=== PATIENT | female | born 1985 | race Caucasian/White ===

== ENCOUNTER 2018-04-30 11:46 | Inpatient (IN) | payer MEDICAID ==
[2018-04-30] MEDS ORDERED: CARBOPROST 250 MCG INJ IM ×2 (12:00→18:30)
[2018-04-30] MEDS ORDERED: OXYTOCIN 30 UNITS/LR 500 ML IV ×2 (12:00→18:30)
[2018-04-30] MEDS ORDERED: MISOPROSTOL 200 MCG TAB PR ×2 (12:00→18:30)
[2018-04-30] MEDS ORDERED: METHYLERGONOVINE 0.2 MG INJ IM ×2 (12:00→18:30)
[2018-04-30] MEDS: LACTATED RINGER'S 1,000 ML IV ×4 (12:21→18:21)
[2018-04-30] MEDS ORDERED: ONDANSETRON 4 MG INJ IV ×3 (12:30→18:30)
[2018-04-30 12:33] LABS: ADD MAN DIFF? NO
[2018-04-30 12:36] LABS: ABNORMAL IP MESSAGE 1; BASOPHILS % 0.4 % (0.0-2.0); EOSINOPHILS # 0.1 10^3/ul (0.0-0.5); EOSINOPHILS % 0.7 % (0.0-7.0); HEMATOCRIT 32.4 % (37.0-47.0); HEMOGLOBIN 10.7 g/dl (12.0-16.0); LYMPHOCYTES # 1.1 10^3/ul (0.8-2.9); LYMPHOCYTES % 14.2 % (15.0-51.0); MEAN CORPUSCULAR HEMOGLOBIN 29.3 pg (29.0-33.0); MEAN CORPUSCULAR VOLUME 88.8 fl (82.0-101.0); MEAN PLATELET VOLUME 13.1 fl (7.4-10.4); MONOCYTE # 0.4 10^3/ul (0.3-0.9); NEUTROPHILS % 79.2 % (39.0-77.0); PLATELET COUNT 146 10^3/UL (140-415); RED BLOOD COUNT 3.65 10^6/ul (4.20-5.40)
[2018-04-30 12:36] LABS: WHITE BLOOD COUNT 7.5 10^3/ul (4.8-10.8)
[2018-04-30 12:58] LABS: INR 0.97
[2018-04-30 13:32] LABS: HEPATITIS B SURFACE ANTIGEN NEGATIVE (NEGATIVE)
[2018-04-30] MEDS: METOCLOPRAMIDE 10 MG INJ IV (16:43)
[2018-04-30] MEDS: CITRIC ACID/NA CITRATE 30 ML CUP PO (16:43)
[2018-04-30] MEDS: FAMOTIDINE 20 MG INJ IV (16:43)
[2018-04-30] MEDS ORDERED: morphine SULFATE/PF (10 MG/10 ML) INJ (16:57)
[2018-04-30] MEDS ORDERED: PHENYLephrine (100 MCG/ML) 10ML SYG (17:09)
[2018-04-30] MEDS: CEFAZOLIN 2 GM/50 ML (PMX) 50 ML IVPB (17:23)
[2018-04-30] MEDS ORDERED: ONDANSETRON 4 MG INJ (17:24)
[2018-04-30] MEDS ORDERED: KETOROLAC 30 MG INJ IV (17:30)
[2018-04-30] MEDS ORDERED: HYDROmorphONE 1 MG/5 ML IV SYRINGE IV ×3 (17:30)
[2018-04-30] MEDS ORDERED: DIPHENHYDRAMINE 50 MG INJ IV ×2 (17:30→18:30)
[2018-04-30] MEDS ORDERED: FENTAnyl 50 MCG/ML VIAL IV ×3 (17:30)
[2018-04-30] MEDS ORDERED: PROCHLORPERAZINE 10 MG INJ IV (17:30)
[2018-04-30] MEDS ORDERED: MEPERIDINE 25 MG INJ IV (17:30)
[2018-04-30] MEDS ORDERED: EPHEDrine 25 MG/5 ML SYG (17:44)
[2018-04-30] MEDS ORDERED: HYDROmorphONE 0.5 MG/0.5 ML SYG IV ×2 (18:30)
[2018-04-30] MEDS ORDERED: NALOXONE (0.4 MG/ML) INJ IV (18:30)
[2018-04-30] MEDS ORDERED: METHYLERGONOVINE 0.2 MG TAB PO (18:30)
[2018-04-30] MEDS ORDERED: ZOLPIDEM 5 MG TAB PO (18:30)
[2018-04-30] MEDS: OXYTOCIN 30 UNITS/LR 500 ML IV ×2 (18:40→22:06)
[2018-04-30 18:54] LABS: RAPID PLASMA REAGIN NONREACTIVE (NR)
[2018-04-30] MEDS: SENNA/DOCUSATE NA (8.6MG/50MG) TAB PO (22:03)
[2018-05-01 07:57] LABS: ADD MAN DIFF? NO
[2018-05-01 08:02] LABS: ABNORMAL IP MESSAGE 1; BASOPHILS % 0.3 % (0.0-2.0); EOSINOPHILS % 0.3 % (0.0-7.0); HEMATOCRIT 31.6 % (37.0-47.0); HEMOGLOBIN 10.3 g/dl (12.0-16.0); LYMPHOCYTES # 0.7 10^3/ul (0.8-2.9); LYMPHOCYTES % 7.1 % (15.0-51.0); MEAN CORPUSCULAR HEMOGLOBIN 29.3 pg (29.0-33.0); MEAN CORPUSCULAR HGB CONC 32.6 g/dl (32.0-37.0); MEAN PLATELET VOLUME 13.2 fl (7.4-10.4); MONOCYTE # 0.5 10^3/ul (0.3-0.9); MONOCYTES % 5.2 % (0.0-11.0); NEUTROPHIL # 8.6 10^3/ul (1.6-7.5); NEUTROPHILS % 86.6 % (39.0-77.0); PLATELET COUNT 122 10^3/UL (140-415); RED BLOOD COUNT 3.51 10^6/ul (4.20-5.40); RED CELL DISTRIBUTION WIDTH 13.2 % (11.5-14.5)
[2018-05-01 08:02] LABS: WHITE BLOOD COUNT 9.9 10^3/ul (4.8-10.8)
[2018-05-01] MEDS: LACTATED RINGER'S 1,000 ML IV ×2 (08:04→16:00)
[2018-05-01 08:07] LABS: POSITIVE DIFF @See below
[2018-05-01 08:20] LABS: ANION GAP 7 (5-13); BLOOD UREA NITROGEN 7 mg/dl (7-20); CALCIUM 8.6 mg/dl (8.4-10.2); CARBON DIOXIDE 24 mmol/L (21-31); CHLORIDE 105 mmol/L (97-110); CREATININE 0.47 mg/dl (0.44-1.00); Estimated GFR > 60 mL/min (>60); GLUCOSE 82 mg/dl (70-220); SODIUM 136 mmol/L (135-144)
[2018-05-01] MEDS: SENNA/DOCUSATE NA (8.6MG/50MG) TAB PO ×2 (09:00→21:45)
[2018-05-01] MEDS: KETOROLAC 30 MG INJ IV (12:02)
[2018-05-01] MEDS: LANOLIN HPA 1 PKT TOP (12:08)
[2018-05-01] MEDS: HYDROCODONE/APAP (5/325) TAB PO (17:03)
[2018-05-02] MEDS: IBUPROFEN 800 MG TAB PO ×2 (00:19→21:21)
[2018-05-02] MEDS: HYDROCODONE/APAP (5/325) TAB PO ×5 (01:10→21:21)
[2018-05-02] MEDS: SENNA/DOCUSATE NA (8.6MG/50MG) TAB PO ×2 (09:21→21:20)
[2018-05-02] MEDS ORDERED: BISACODYL 10 MG SUPP PR (11:00)
[2018-05-02] MEDS: MAGNESIUM HYDROXIDE 30ML CUP PO (11:34)
[2018-05-03] MEDS: IBUPROFEN 800 MG TAB PO (05:26)
[2018-05-03 06:58] LABS: ADD MAN DIFF? NO
[2018-05-03 07:04] LABS: BASOPHILS % 0.4 % (0.0-2.0); EOSINOPHILS # 0.3 10^3/ul (0.0-0.5); EOSINOPHILS % 3.3 % (0.0-7.0); HEMATOCRIT 29.2 % (37.0-47.0); HEMOGLOBIN 9.4 g/dl (12.0-16.0); LYMPHOCYTES % 11.3 % (15.0-51.0); MEAN CORPUSCULAR HEMOGLOBIN 29.7 pg (29.0-33.0); MEAN CORPUSCULAR HGB CONC 32.2 g/dl (32.0-37.0); MEAN CORPUSCULAR VOLUME 92.4 fl (82.0-101.0); MEAN PLATELET VOLUME 12.2 fl (7.4-10.4); MONOCYTE # 0.5 10^3/ul (0.3-0.9); MONOCYTES % 5.9 % (0.0-11.0); NEUTROPHIL # 6.7 10^3/ul (1.6-7.5); NEUTROPHILS % 78.7 % (39.0-77.0); PLATELET COUNT 145 10^3/UL (140-415); RED BLOOD COUNT 3.16 10^6/ul (4.20-5.40); RED CELL DISTRIBUTION WIDTH 13.1 % (11.5-14.5)
[2018-05-03 07:04] LABS: WHITE BLOOD COUNT 8.5 10^3/ul (4.8-10.8)
[2018-05-03] MEDS: MEASLES,MUMPS,RUBELLA VACCINE INJ SC* (09:00)
[2018-05-03] MEDS: SENNA/DOCUSATE NA (8.6MG/50MG) TAB PO (09:37)
[2018-05-03] MEDS: DIPHTH/TET/ACEL PERTUSS (ADULT) 0.5 ML VIAL IM* (11:57)
[2018-05-03] MEDS: HYDROCODONE/APAP (5/325) TAB PO (14:33)
== END 2018-05-03 16:38 | disposition home or self-care (01) | DRG 788 ==
LOC: L-D 11:46 → PP1 20:26
PROVIDERS: Obstetrics & Gynecology
PROC: 10D00Z1 Extraction of Products of Conception, Low, Open Approach (ICD-10-PCS; principal; 2018-04-30 15:00)
DX: O34.211 Maternal care for low transverse scar from previous cesarean delivery (principal); O99.89 Other specified diseases and conditions complicating pregnancy, childbirth and the puerperium; N73.6 Female pelvic peritoneal adhesions (postinfective); Z3A.39 39 weeks gestation of pregnancy; Z37.0 Single live birth
CPT/HCPCS: 80048; 82962; 85025; 85610; 85730; 86592; 86850; 86900; 86901; 87340; 90686; 90715; 99464